=== PATIENT | male | born 1935 | race Caucasian/White ===

== ENCOUNTER 2018-08-17 18:45 | Inpatient (IN) ==
[2018-08-17] MEDS ORDERED: VANCOMYCIN INJ 750 MG in SODIUM CHLORIDE 0.9% 250 ML IV STA (19:18)
[2018-08-17] MEDS ORDERED: CEFEPIME 1,000 MG in SODIUM CHLORIDE 0.9% 100 ML IV STA (19:18)
[2018-08-17] MEDS ORDERED: SODIUM CHLORIDE 0.9% 1,000 ML IV STA ×2 (19:18→20:02)
[2018-08-17 19:43] LABS: Basophils % 0.4 % (0.0-0.8); Eosinophils % 0.4 % (0.00-10.9); Hematocrit 28.5 VOL% (42.0-52.0); Hemoglobin 8.7 GM/DL (14.0-18.0); Immature Granulocytes % 0.4 %; Immature Granulocytes Absolute 0.01 #; Lymphocytes # 0.6 10*3/uL (1.4-4.0); Mean Corpuscular HGB Conc 30.5 GM/DL (32-36); Mean Corpuscular Volume 91.6 FL (87-102); Monocytes % 10.3 % (1.7-12.7); Neutrophils % 64.5 % (38.7-73.9); Platelet Count 72 T/CUMM (130-400); Red Blood Count 3.11 MC/CUMM (3.8-5.5); Red Cell Distribution Width 14.3 % (9.3-17.3); White Blood Count 2.3 T/CUMM (4-12)
[2018-08-17 19:59] LABS: Bilirubin,Total 1.3 MG/DL (0.2-1.0); Calcium 7.5 MG/DL (8.5-10.1); Osmolality,Calculated 277.5 MOS/KG (273-304); Total Protein 5.9 G/DL (6.4-8.3)
[2018-08-17] MEDS ORDERED: VANCOMYCIN 1,000 MG VIAL ONE (20:00)
[2018-08-17 20:01] LABS: Lymphocytes 25 % (20-55); Segmented Neutrophils 67 % (50-85)
[2018-08-17 20:02] LABS: Hypochromasia 1+; Platelet Estimate Decreased
[2018-08-17 20:03] LABS: Ovalocytes Slight; Total Cells Counted 100
[2018-08-17 20:04] LABS: Macrocytosis 1+
[2018-08-17] MEDS ORDERED: ALBUTEROL 2.5 MG/3 ML NEB RESP TX PRN ×2 (22:48→22:53)
[2018-08-17] MEDS ORDERED: ONDANSETRON 4 MG/2 ML VIAL IV PRN (22:53)
[2018-08-17] MEDS ORDERED: ACETAMINOPHEN 325 MG TABLET PO PRN (22:53)
[2018-08-17] MEDS ORDERED: LEVOFLOXACIN INJ 750 MG in PREMIX 1 EACH IV ONE (23:00)
[2018-08-18] MEDS: SODIUM CHLORIDE 0.9% 1,000 ML IV SCH ×3 (00:12→16:10)
[2018-08-18] MEDS: ALBUTEROL/IPRATROPIUM 3 ML NEB RESP TX SCH ×5 (01:20→19:08)
[2018-08-18 01:27] LABS: PT Patient Result 10.7 SECS
[2018-08-18] MEDS: PIPERACILLIN/TAZOBACTAM 3,375 MG in SODIUM CHLORIDE 0.9% 100 ML IV SCH ×2 (02:05→11:45)
[2018-08-18 04:54] LABS: Calcium 6.9 MG/DL (8.5-10.1); Osmolality,Calculated 283.8 MOS/KG (273-304)
[2018-08-18 05:04] LABS: Basophils % 0.7 % (0.0-0.8); Hematocrit 25.2 VOL% (42.0-52.0); Hemoglobin 7.7 GM/DL (14.0-18.0); Lymphocytes # 0.3 10*3/uL (1.4-4.0); Lymphocytes % 17.9 % (21.2-54.2); Mean Corpuscular HGB Conc 30.6 GM/DL (32-36); Mean Corpuscular Volume 92.6 FL (87-102); Mean Platelet Volume 11.8 FL (9.6-12.0); Monocytes % 9.3 % (1.7-12.7); Neutrophils % 70.1 % (38.7-73.9); Red Blood Count 2.72 MC/CUMM (3.8-5.5); Red Cell Distribution Width 14.3 % (9.3-17.3); White Blood Count 1.5 T/CUMM (4-12)
[2018-08-18 05:25] LABS: Platelet Count 73 T/CUMM (130-400)
[2018-08-18 05:50] LABS: Platelet Estimate Decreased; Polychromasia Few
[2018-08-18 06:22] LABS: Hypochromasia Slight; Ovalocytes 1+
[2018-08-18 06:43] LABS: Apearance,Urine Slightly Hazy (Clear); Bacteria,Urine Occasional /HPF (Few); Bilirubin,Urine Negative (Negative); Blood, Urine Small mg/dL (Negative); Glucose,Urine (UA) Negative (Negative); Hyaline Casts,Urine 1 /LPF (0-3); Ketones,Urine Negative (Negative); Mucus,Urine Occasional /LPF (Occasional); Nitrite,Urine Negative (Negative); Protein,Urine 30 MG/DL; RBC,Urine 2 /HPF (0-4); Squamous Epithelial Cell,Urine Occasional /HPF (0-10); Urine Color Yellow (Yellow); Urine Specific Gravity 1.015 (1.001-1.035); WBC,Urine 7 /HPF (0-6)
[2018-08-18] MEDS: POTASSIUM CHLORIDE 20 MEQ TABLET PO PRN ×4 (06:56→16:38)
[2018-08-18] MEDS ORDERED: SODIUM CHLORIDE 0.9% 1,000 ML IV PRN (08:54)
[2018-08-18] MEDS: methylPREDNISolone SOD SUC 40 MG/1 ML VIAL IV SCH ×2 (09:07→16:10)
[2018-08-18] MEDS: SYSTANE GEL DROPS BOTH EYES SCH ×2 (09:08→22:02)
[2018-08-18] MEDS ORDERED: BUDESONIDE/FORMOTEROL 160-4.5 INHALER 6 GM INH PRN (09:37)
[2018-08-18] MEDS ORDERED: ALBUTEROL 2.5 MG/3 ML NEB RESP TX PRN (10:00)
[2018-08-18] MEDS: ROSUVASTATIN 10 MG TABLET PO SCH (22:01)
[2018-08-18] MEDS: OMEGA 3 ACID ETHYL ESTERS 1 GM CAPSULE PO SCH (22:01)
[2018-08-18] MEDS: POLYVINYL ALCOHOL 1.4% OPH SOLN 15 ML BOTTLE BOTH EYES SCH (22:02)
[2018-08-19] MEDS: methylPREDNISolone SOD SUC 40 MG/1 ML VIAL IV SCH ×4 (00:25→23:20)
[2018-08-19] MEDS: SODIUM CHLORIDE 0.9% 1,000 ML IV SCH ×3 (00:27→16:00)
[2018-08-19] MEDS: ALBUTEROL/IPRATROPIUM 3 ML NEB RESP TX SCH ×4 (01:18→20:04)
[2018-08-19] MEDS: PIPERACILLIN/TAZOBACTAM 3,375 MG in SODIUM CHLORIDE 0.9% 100 ML IV SCH ×2 (01:37→13:44)
[2018-08-19 05:10] LABS: Immature Granulocytes % 0.5 %; Immature Granulocytes Absolute 0.01 #; Lymphocytes # 0.3 10*3/uL (1.4-4.0); Lymphocytes % 15.5 % (21.2-54.2); Mean Corpuscular Volume 91.3 FL (87-102); Mean Platelet Volume 11.4 FL (9.6-12.0); Monocytes % 4.5 % (1.7-12.7); Neutrophils % 79.5 % (38.7-73.9); Platelet Count 118 T/CUMM (130-400); Red Blood Count 3.69 MC/CUMM (3.8-5.5)
[2018-08-19 05:14] LABS: Hematocrit 33.7 VOL% (42.0-52.0); Hemoglobin 10.8 GM/DL (14.0-18.0)
[2018-08-19 05:17] LABS: Calcium 6.9 MG/DL (8.5-10.1); Osmolality,Calculated 281.8 MOS/KG (273-304)
[2018-08-19] MEDS ORDERED: FLUCONAZOLE 200 MG TABLET PO ONE (08:45)
[2018-08-19] MEDS: valACYclovir 500 MG TABLET PO SCH ×2 (09:58→20:57)
[2018-08-19] MEDS: OMEGA 3 ACID ETHYL ESTERS 1 GM CAPSULE PO SCH ×2 (09:58→20:47)
[2018-08-19] MEDS: SYSTANE GEL DROPS BOTH EYES SCH ×2 (10:01→20:46)
[2018-08-19] MEDS: NYSTATIN POWDER 15 GM BOTTLE TOP SCH ×2 (10:01→20:46)
[2018-08-19] MEDS: NYSTATIN 500,000 UNIT/5 ML UDCUP SWISH/SWAL SCH ×4 (10:01→20:52)
[2018-08-19] MEDS: POLYVINYL ALCOHOL 1.4% OPH SOLN 15 ML BOTTLE BOTH EYES SCH ×2 (10:01→20:52)
[2018-08-19] MEDS: CARVEDILOL 12.5 MG TABLET PO SCH ×2 (13:44→20:48)
[2018-08-19] MEDS ORDERED: CALCIUM GLUCONATE 2,000 MG in SODIUM CHLORIDE 0.9% 100 ML IV ONE (14:46)
[2018-08-19] MEDS ORDERED: VANCOMYCIN INJ 750 MG in SODIUM CHLORIDE 0.9% 250 ML IV SCH (16:00)
[2018-08-19] MEDS: ROSUVASTATIN 10 MG TABLET PO SCH (20:47)
[2018-08-19] MEDS ORDERED: LEVOFLOXACIN INJ 500 MG in PREMIX 1 EACH IV SCH (23:00)
[2018-08-20] MEDS: ALBUTEROL/IPRATROPIUM 3 ML NEB RESP TX SCH ×4 (01:12→19:54)
[2018-08-20] MEDS: PIPERACILLIN/TAZOBACTAM 3,375 MG in SODIUM CHLORIDE 0.9% 100 ML IV SCH (01:24)
[2018-08-20] MEDS: SODIUM CHLORIDE 0.9% 1,000 ML IV SCH ×4 (01:34→23:20)
[2018-08-20 06:07] LABS: Hematocrit 32.6 VOL% (42.0-52.0); Hemoglobin 10.5 GM/DL (14.0-18.0); Immature Granulocytes % 10.1 %; Immature Granulocytes Absolute 0.17 #; Lymphocytes # 0.3 10*3/uL (1.4-4.0); Lymphocytes % 16.1 % (21.2-54.2); Mean Corpuscular HGB Conc 32.2 GM/DL (32-36); Mean Corpuscular Volume 90.6 FL (87-102); Mean Platelet Volume 10.6 FL (9.6-12.0); Neutrophils % 67.8 % (38.7-73.9); Platelet Count 166 T/CUMM (130-400); Red Cell Distribution Width 14.3 % (9.3-17.3); White Blood Count 1.7 T/CUMM (4-12)
[2018-08-20 06:19] LABS: Calcium 7.3 MG/DL (8.5-10.1); Osmolality,Calculated 292.7 MOS/KG (273-304)
[2018-08-20 06:33] LABS: Band Neutrophils 4 % (0-10); Burr Cells Slight; Hypochromasia 1+; Lymphocytes 17 % (20-55); Ovalocytes Slight; Platelet Estimate Adequate; Segmented Neutrophils 75 % (50-85); Total Cells Counted 100
[2018-08-20] MEDS ORDERED: PROMETHAZINE 25 MG/1 ML VIAL IM ONE (07:00)
[2018-08-20] MEDS ORDERED: MEPERIDINE 50 MG/1 ML VIAL IM ONE (07:00)
[2018-08-20] MEDS ORDERED: MIDAZOLAM 2 MG/2 ML VIAL ONE (07:17)
[2018-08-20] MEDS ORDERED: LIDOCAINE 2% VISCOUS 100 ML BOTTLE SWISH/SPIT ONE (07:30)
[2018-08-20] MEDS ORDERED: MIDAZOLAM 2 MG/2 ML VIAL IV ONE (07:30)
[2018-08-20] MEDS ORDERED: LIDOCAINE 2% 20 ML VIAL RESP TX ONE (07:30)
[2018-08-20] MEDS ORDERED: LIDOCAINE 1% 20 ML VIAL MISC INJ ONE (07:30)
[2018-08-20] MEDS: methylPREDNISolone SOD SUC 40 MG/1 ML VIAL IV SCH ×3 (09:42→22:15)
[2018-08-20] MEDS: POLYVINYL ALCOHOL 1.4% OPH SOLN 15 ML BOTTLE BOTH EYES SCH ×2 (09:43→22:16)
[2018-08-20] MEDS: NYSTATIN POWDER 15 GM BOTTLE TOP SCH ×2 (09:43→22:16)
[2018-08-20] MEDS: OMEGA 3 ACID ETHYL ESTERS 1 GM CAPSULE PO SCH ×2 (09:43→22:18)
[2018-08-20] MEDS: SYSTANE GEL DROPS BOTH EYES SCH ×2 (09:43→22:17)
[2018-08-20] MEDS: CARVEDILOL 12.5 MG TABLET PO SCH ×2 (09:43→22:16)
[2018-08-20] MEDS: valACYclovir 500 MG TABLET PO SCH ×2 (09:43→22:17)
[2018-08-20] MEDS: NYSTATIN 500,000 UNIT/5 ML UDCUP SWISH/SWAL SCH ×4 (09:43→22:17)
[2018-08-20] MEDS: ERTAPENEM 1,000 MG in SODIUM CHLORIDE 0.9% 100 ML IV SCH (13:01)
[2018-08-20] MEDS: VANCOMYCIN INJ 1,000 MG in SODIUM CHLORIDE 0.9% 250 ML IV SCH (14:53)
[2018-08-20] MEDS: ROSUVASTATIN 10 MG TABLET PO SCH (22:16)
[2018-08-21] MEDS: ALBUTEROL/IPRATROPIUM 3 ML NEB RESP TX SCH ×4 (02:20→20:11)
[2018-08-21 06:19] LABS: Albumin 1.7 G/DL (3.4-5.0); Bilirubin,Total 0.8 MG/DL (0.2-1.0); Calcium 7.5 MG/DL (8.5-10.1); Osmolality,Calculated 297.1 MOS/KG (273-304); Total Protein 4.8 G/DL (6.4-8.3)
[2018-08-21 06:23] LABS: Hemoglobin 10.5 GM/DL (14.0-18.0); Immature Granulocytes % 2.5 %; Immature Granulocytes Absolute 0.05 #; Lymphocytes # 0.4 10*3/uL (1.4-4.0); Lymphocytes % 17.5 % (21.2-54.2); Mean Corpuscular HGB Conc 30.9 GM/DL (32-36); Mean Corpuscular Volume 93.4 FL (87-102); Monocytes % 6.5 % (1.7-12.7); Neutrophils % 73.5 % (38.7-73.9); Platelet Count 192 T/CUMM (130-400); Red Blood Count 3.64 MC/CUMM (3.8-5.5); Red Cell Distribution Width 14.2 % (9.3-17.3)
[2018-08-21] MEDS: SODIUM CHLORIDE 0.9% 1,000 ML IV SCH ×4 (07:00→21:00)
[2018-08-21] MEDS: CARVEDILOL 12.5 MG TABLET PO SCH ×2 (08:51→20:59)
[2018-08-21] MEDS: valACYclovir 500 MG TABLET PO SCH ×2 (08:52→20:59)
[2018-08-21] MEDS: OMEGA 3 ACID ETHYL ESTERS 1 GM CAPSULE PO SCH ×2 (08:52→20:59)
[2018-08-21] MEDS: NYSTATIN 500,000 UNIT/5 ML UDCUP SWISH/SWAL SCH ×4 (08:53→20:59)
[2018-08-21] MEDS: methylPREDNISolone SOD SUC 40 MG/1 ML VIAL IV SCH ×2 (08:53→20:58)
[2018-08-21] MEDS: POLYVINYL ALCOHOL 1.4% OPH SOLN 15 ML BOTTLE BOTH EYES SCH ×2 (08:54→20:59)
[2018-08-21] MEDS: NYSTATIN POWDER 15 GM BOTTLE TOP SCH ×2 (08:54→20:59)
[2018-08-21] MEDS: SYSTANE GEL DROPS BOTH EYES SCH ×2 (08:54→21:00)
[2018-08-21] MEDS: ERTAPENEM 1,000 MG in SODIUM CHLORIDE 0.9% 100 ML IV SCH (12:04)
[2018-08-21] MEDS: VANCOMYCIN INJ 1,000 MG in SODIUM CHLORIDE 0.9% 250 ML IV SCH (15:06)
[2018-08-21] MEDS ORDERED: hydrALAZINE 20 MG/1 ML VIAL IV ONE (16:44)
[2018-08-21] MEDS: PANTOPRAZOLE 40 MG TABLET PO SCH (20:59)
[2018-08-21] MEDS: hydrALAZINE 25 MG TABLET PO SCH (20:59)
[2018-08-21] MEDS: ROSUVASTATIN 10 MG TABLET PO SCH (20:59)
[2018-08-22] MEDS: ALBUTEROL/IPRATROPIUM 3 ML NEB RESP TX SCH ×4 (00:51→19:37)
[2018-08-22 04:27] LABS: Basophils % 0.3 % (0.0-0.8); Hemoglobin 10.9 GM/DL (14.0-18.0); Immature Granulocytes Absolute 0.25 #; Lymphocytes # 0.5 10*3/uL (1.4-4.0); Lymphocytes % 14.8 % (21.2-54.2); Mean Corpuscular HGB Conc 31.1 GM/DL (32-36); Mean Corpuscular Volume 92.6 FL (87-102); Mean Platelet Volume 9.8 FL (9.6-12.0); Monocytes % 7.1 % (1.7-12.7); NRBC # 0.02 10*3/uL; Neutrophils % 69.8 % (38.7-73.9); Platelet Count 223 T/CUMM (130-400); Red Blood Count 3.78 MC/CUMM (3.8-5.5); Red Cell Distribution Width 14.6 % (9.3-17.3); White Blood Count 3.1 T/CUMM (4-12)
[2018-08-22 04:59] LABS: Calcium 7.5 MG/DL (8.5-10.1); Osmolality,Calculated 301.1 MOS/KG (273-304)
[2018-08-22 05:19] LABS: Anisocytosis 1+; Lymphocytes 17 % (20-55); Platelet Estimate Adequate; Segmented Neutrophils 76 % (50-85); Total Cells Counted 100
[2018-08-22] MEDS: NYSTATIN POWDER 15 GM BOTTLE TOP SCH ×2 (10:28→21:00)
[2018-08-22] MEDS: amLODIPine 5 MG TABLET PO SCH (10:28)
[2018-08-22] MEDS: CARVEDILOL 12.5 MG TABLET PO SCH ×2 (10:28→21:00)
[2018-08-22] MEDS: hydrALAZINE 25 MG TABLET PO SCH ×2 (10:28→21:00)
[2018-08-22] MEDS: NYSTATIN 500,000 UNIT/5 ML UDCUP SWISH/SWAL SCH ×4 (10:28→21:00)
[2018-08-22] MEDS: OMEGA 3 ACID ETHYL ESTERS 1 GM CAPSULE PO SCH ×2 (10:28→21:40)
[2018-08-22] MEDS: valACYclovir 500 MG TABLET PO SCH ×2 (10:29→21:00)
[2018-08-22] MEDS: PANTOPRAZOLE 40 MG TABLET PO SCH ×2 (10:29→21:00)
[2018-08-22] MEDS: methylPREDNISolone SOD SUC 40 MG/1 ML VIAL IV SCH ×2 (10:29→21:00)
[2018-08-22] MEDS: SODIUM CHLORIDE 0.9% 1,000 ML IV SCH ×2 (10:30→14:39)
[2018-08-22] MEDS: SYSTANE GEL DROPS BOTH EYES SCH ×2 (10:49→21:00)
[2018-08-22] MEDS: POLYVINYL ALCOHOL 1.4% OPH SOLN 15 ML BOTTLE BOTH EYES SCH ×2 (10:50→21:00)
[2018-08-22] MEDS: ERTAPENEM 1,000 MG in SODIUM CHLORIDE 0.9% 100 ML IV SCH (12:12)
[2018-08-22] MEDS: VANCOMYCIN INJ 1,000 MG in SODIUM CHLORIDE 0.9% 250 ML IV SCH (14:28)
[2018-08-22] MEDS: ROSUVASTATIN 10 MG TABLET PO SCH (21:00)
[2018-08-23] MEDS: SODIUM CHLORIDE 0.9% 1,000 ML IV SCH ×3 (00:19→09:32)
[2018-08-23] MEDS: ALBUTEROL/IPRATROPIUM 3 ML NEB RESP TX SCH ×4 (00:19→19:29)
[2018-08-23] MEDS: OMEGA 3 ACID ETHYL ESTERS 1 GM CAPSULE PO SCH ×2 (09:25→21:59)
[2018-08-23] MEDS: CARVEDILOL 12.5 MG TABLET PO SCH ×2 (09:25→21:59)
[2018-08-23] MEDS: valACYclovir 500 MG TABLET PO SCH ×2 (09:25→21:59)
[2018-08-23] MEDS: amLODIPine 5 MG TABLET PO SCH (09:25)
[2018-08-23] MEDS: hydrALAZINE 25 MG TABLET PO SCH ×2 (09:25→21:59)
[2018-08-23] MEDS: NYSTATIN 500,000 UNIT/5 ML UDCUP SWISH/SWAL SCH ×4 (09:25→21:59)
[2018-08-23] MEDS: POLYVINYL ALCOHOL 1.4% OPH SOLN 15 ML BOTTLE BOTH EYES SCH ×2 (09:25→21:59)
[2018-08-23] MEDS: PANTOPRAZOLE 40 MG TABLET PO SCH ×2 (09:25→21:59)
[2018-08-23] MEDS: SYSTANE GEL DROPS BOTH EYES SCH ×2 (09:26→21:59)
[2018-08-23] MEDS: NYSTATIN POWDER 15 GM BOTTLE TOP SCH ×2 (09:26→21:59)
[2018-08-23] MEDS: methylPREDNISolone SOD SUC 40 MG/1 ML VIAL IV SCH (09:26)
[2018-08-23] MEDS: ERTAPENEM 1,000 MG in SODIUM CHLORIDE 0.9% 100 ML IV SCH (12:00)
[2018-08-23] MEDS: predniSONE 20 MG TABLET PO SCH (14:32)
[2018-08-23] MEDS: VANCOMYCIN INJ 1,250 MG in SODIUM CHLORIDE 0.9% 250 ML IV SCH (17:25)
[2018-08-23] MEDS: ROSUVASTATIN 10 MG TABLET PO SCH (21:59)
[2018-08-24] MEDS: ALBUTEROL/IPRATROPIUM 3 ML NEB RESP TX SCH ×2 (00:40→07:05)
[2018-08-24 05:47] LABS: Basophils % 0.7 % (0.0-0.8); Hematocrit 36.7 VOL% (42.0-52.0); Hemoglobin 11.4 GM/DL (14.0-18.0); Immature Granulocytes % 17.6 %; Immature Granulocytes Absolute 0.94 #; Lymphocytes # 0.6 10*3/uL (1.4-4.0); Lymphocytes % 11.6 % (21.2-54.2); Mean Corpuscular HGB Conc 31.1 GM/DL (32-36); Mean Corpuscular Volume 93.6 FL (87-102); Mean Platelet Volume 9.3 FL (9.6-12.0); Monocytes % 6.5 % (1.7-12.7); NRBC # 0.03 10*3/uL; Neutrophils % 63.6 % (38.7-73.9); Platelet Count 243 T/CUMM (130-400); Red Blood Count 3.92 MC/CUMM (3.8-5.5); Red Cell Distribution Width 14.5 % (9.3-17.3); White Blood Count 5.4 T/CUMM (4-12)
[2018-08-24 06:03] LABS: Calcium 7.6 MG/DL (8.5-10.1); Osmolality,Calculated 299.3 MOS/KG (273-304)
[2018-08-24 06:16] LABS: Band Neutrophils 5 % (0-10); Lymphocytes 14 % (20-55); Metamyelocytes 3 %; Myelocytes 4 %; Segmented Neutrophils 68 % (50-85); Total Cells Counted 100
[2018-08-24 06:23] LABS: Anisocytosis Slight; Microcytosis Slight
[2018-08-24 06:24] LABS: Ovalocytes Slight; Platelet Estimate Normal
[2018-08-24] MEDS: valACYclovir 500 MG TABLET PO SCH (09:25)
[2018-08-24] MEDS: NYSTATIN 500,000 UNIT/5 ML UDCUP SWISH/SWAL SCH ×2 (09:25→13:31)
[2018-08-24] MEDS: hydrALAZINE 25 MG TABLET PO SCH (09:25)
[2018-08-24] MEDS: predniSONE 20 MG TABLET PO SCH (09:25)
[2018-08-24] MEDS: CARVEDILOL 12.5 MG TABLET PO SCH (09:25)
[2018-08-24] MEDS: amLODIPine 5 MG TABLET PO SCH (09:25)
[2018-08-24] MEDS: PANTOPRAZOLE 40 MG TABLET PO SCH (09:25)
[2018-08-24] MEDS: OMEGA 3 ACID ETHYL ESTERS 1 GM CAPSULE PO SCH (09:25)
[2018-08-24] MEDS: NYSTATIN POWDER 15 GM BOTTLE TOP SCH (09:26)
[2018-08-24] MEDS: POLYVINYL ALCOHOL 1.4% OPH SOLN 15 ML BOTTLE BOTH EYES SCH (09:26)
[2018-08-24] MEDS: SYSTANE GEL DROPS BOTH EYES SCH (09:26)
[2018-08-24] MEDS: ERTAPENEM 1,000 MG in SODIUM CHLORIDE 0.9% 100 ML IV SCH (12:03)
[2018-08-24 12:28] VITALS: BP 172/88
[2018-08-24] MEDS: VANCOMYCIN INJ 1,250 MG in SODIUM CHLORIDE 0.9% 250 ML IV SCH (13:29)
== END 2018-08-24 15:44 | disposition home health service (06) | DRG 871 ==
LOC: N.ED 18:45 → N.EDINP 22:02 → SUATTDRO 22:02 → N.CC 22:20 → N.5E 08-18 16:50
PROVIDERS: ADMIT Internal Medicine; ATTEND Internal Medicine

== ENCOUNTER 2018-09-22 13:03 | Observation (INO) ==
[2018-09-22] MEDS ORDERED: HYDROCORTISONE 100 MG VIAL IV STA (14:11)
[2018-09-22] MEDS ORDERED: ALBUTEROL 2.5 MG/3 ML NEB RESP TX STA (14:12)
[2018-09-22] MEDS ORDERED: SODIUM CHLORIDE 0.9% 500 ML IV STA (15:00)
[2018-09-22 15:04] LABS: Basophils % 0.2 % (0.0-0.8); Eosinophils % 0.5 % (0.00-10.9); Hematocrit 34.6 VOL% (42.0-52.0); Hemoglobin 10.7 GM/DL (14.0-18.0); Immature Granulocytes % 0.7 %; Immature Granulocytes Absolute 0.03 #; Lymphocytes # 1.6 10*3/uL (1.4-4.0); Lymphocytes % 38.4 % (21.2-54.2); Mean Corpuscular HGB Conc 30.9 GM/DL (32-36); Mean Corpuscular Volume 93.3 FL (87-102); Mean Platelet Volume 9.7 FL (9.6-12.0); Monocytes % 5.8 % (1.7-12.7); Neutrophils % 54.4 % (38.7-73.9); Platelet Count 127 T/CUMM (130-400); Red Blood Count 3.71 MC/CUMM (3.8-5.5); Red Cell Distribution Width 17.6 % (9.3-17.3); White Blood Count 4.1 T/CUMM (4-12)
[2018-09-22 15:29] LABS: Albumin 2.4 G/DL (3.4-5.0); Bilirubin,Total 1.5 MG/DL (0.2-1.0); Calcium 7.9 MG/DL (8.5-10.1); Osmolality,Calculated 277.1 MOS/KG (273-304)
[2018-09-22 16:53] LABS: Troponin I < 0.015 NG/ML (0.00-0.045)
[2018-09-22] MEDS ORDERED: ONDANSETRON 4 MG/2 ML VIAL IV PRN (16:59)
[2018-09-22 17:08] LABS: Apearance,Urine CLEAR (Clear); Bacteria,Urine Occasional /HPF (Few); Blood, Urine Negative (Negative); Glucose,Urine (UA) Negative (Negative); Hyaline Casts,Urine 48 /LPF (0-3); Ketones,Urine Negative (Negative); Mucus,Urine Occasional /LPF (Occasional); Nitrite,Urine Negative (Negative); Protein,Urine 30 MG/DL; RBC,Urine 2 /HPF (0-4); Squamous Epithelial Cell,Urine Occasional /HPF (0-10); Urine Specific Gravity 1.019 (1.001-1.035); WBC,Urine 10 /HPF (0-6)
[2018-09-22 17:14] LABS: Bilirubin,Urine Small mg/dL (Negative); Urine Color Yellow (Yellow)
[2018-09-22] MEDS ORDERED: SODIUM CHLORIDE 0.9% 1,000 ML IV SCH ×2 (17:30→18:00)
[2018-09-22] MEDS ORDERED: ALBUTEROL/IPRATROPIUM 3 ML NEB RESP TX PRN (17:32)
[2018-09-22] MEDS ORDERED: ASPIRIN EC 81 MG TABLET PO PRN (17:32)
[2018-09-22] MEDS ORDERED: BUDESONIDE/FORMOTEROL 160-4.5 INHALER 6 GM INH PRN (17:32)
[2018-09-22] MEDS ORDERED: NON-FORMULARY MEDICATION (Albuterol Sulfate [Proair Hfa] 2 PUFF) INH PRN (17:32)
[2018-09-22] MEDS: ALBUTEROL/IPRATROPIUM 3 ML NEB RESP TX SCH (19:18)
[2018-09-23] MEDS: ALBUTEROL/IPRATROPIUM 3 ML NEB RESP TX SCH ×4 (00:25→19:06)
[2018-09-23 04:51] LABS: Eosinophils % 0.7 % (0.00-10.9); Hematocrit 23.8 VOL% (42.0-52.0); Hemoglobin 7.6 GM/DL (14.0-18.0); Immature Granulocytes % 0.3 %; Immature Granulocytes Absolute 0.01 #; Lymphocytes # 1.1 10*3/uL (1.4-4.0); Lymphocytes % 35.5 % (21.2-54.2); Mean Corpuscular HGB Conc 31.9 GM/DL (32-36); Mean Corpuscular Volume 91.2 FL (87-102); Monocytes % 8.3 % (1.7-12.7); Neutrophils % 55.2 % (38.7-73.9); Platelet Count 135 T/CUMM (130-400); Red Blood Count 2.61 MC/CUMM (3.8-5.5); Red Cell Distribution Width 17.4 % (9.3-17.3)
[2018-09-23 05:35] LABS: Calcium 7.2 MG/DL (8.5-10.1); Osmolality,Calculated 283.4 MOS/KG (273-304); Risk Ratio 4.31; Thyroid Stimulating Hormone 2.74 uIU/ml (0.358-3.74)
[2018-09-23] MEDS ORDERED: POTASSIUM CHLORIDE 20 MEQ TABLET PO SCH (09:30)
[2018-09-23] MEDS: PANTOPRAZOLE 40 MG TABLET PO SCH (09:57)
[2018-09-23] MEDS: ACETAMINOPHEN 325 MG TABLET PO PRN (12:38)
[2018-09-24] MEDS: ACETAMINOPHEN 325 MG TABLET PO PRN (00:57)
[2018-09-24] MEDS: ALBUTEROL/IPRATROPIUM 3 ML NEB RESP TX SCH ×4 (01:18→19:27)
[2018-09-24 05:32] LABS: Basophils % 0.3 % (0.0-0.8); Eosinophils % 0.6 % (0.00-10.9); Hematocrit 24.7 VOL% (42.0-52.0); Hemoglobin 7.5 GM/DL (14.0-18.0); Immature Granulocytes % 0.6 %; Immature Granulocytes Absolute 0.02 #; Lymphocytes # 1.3 10*3/uL (1.4-4.0); Lymphocytes % 35.8 % (21.2-54.2); Mean Corpuscular HGB Conc 30.4 GM/DL (32-36); Mean Corpuscular Volume 96.5 FL (87-102); Mean Platelet Volume 9.9 FL (9.6-12.0); Monocytes % 7.7 % (1.7-12.7); Platelet Count 130 T/CUMM (130-400); Red Blood Count 2.56 MC/CUMM (3.8-5.5); Red Cell Distribution Width 17.7 % (9.3-17.3); White Blood Count 3.5 T/CUMM (4-12)
[2018-09-24 06:28] LABS: Anisocytosis Slight; Band Neutrophils 1 % (0-10); Eosinophils 1 % (0-10); Lymphocytes 68 % (20-55); Segmented Neutrophils 23 % (50-85); Total Cells Counted 100
[2018-09-24 06:29] LABS: Microcytosis 1+; Ovalocytes Slight; Polychromasia Few
[2018-09-24 06:30] LABS: Platelet Estimate Adequate
[2018-09-24 07:13] LABS: Calcium 7.9 MG/DL (8.5-10.1); Osmolality,Calculated 282.3 MOS/KG (273-304)
[2018-09-24] MEDS: PANTOPRAZOLE 40 MG TABLET PO SCH (09:00)
[2018-09-24] MEDS: POTASSIUM CHLORIDE 20 MEQ TABLET PO SCH (09:00)
[2018-09-24] MEDS ORDERED: ROSUVASTATIN 10 MG TABLET PO SCH (09:00)
[2018-09-25] MEDS: ALBUTEROL/IPRATROPIUM 3 ML NEB RESP TX SCH ×2 (00:24→07:05)
[2018-09-25 08:13] VITALS: BP 102/64
[2018-09-25] MEDS: POTASSIUM CHLORIDE 20 MEQ TABLET PO SCH (08:58)
[2018-09-25] MEDS: PANTOPRAZOLE 40 MG TABLET PO SCH (08:58)
== END 2018-09-25 11:38 | disposition home health service (06) ==
LOC: N.ED 13:03 → N.EDINP 13:03 → N.2E 20:35